=== PATIENT | female | born 1985 | race Caucasian/White ===

== ENCOUNTER → 2021-01-10 10:55 | Outpatient (BNVA) | payer OTHER, SELFPAY | PROVIDERS: PCP Family Medicine; Visit Provider Internal Medicine | DX: M25.50 Pain in unspecified joint (principal); Z79.899 Other long term (current) drug therapy; E61.1 Iron deficiency; Z11.59 Encounter for screening for other viral diseases; F17.210 Nicotine dependence, cigarettes, uncomplicated | CPT/HCPCS: 36415; 99204 ==

== ENCOUNTER 2021-01-10 13:02 | Outpatient (CLI) | payer OTHER, SELFPAY ==
--- NOTE | 2021-01-10 13:12 | XR_ITS ---
WS: [id number] FOOT LEFT TECHNIQUE: 2 views of the left foot CLINICAL INFORMATION: M25.50 - Pain in unspecified joint COMPARISON: None. FINDINGS: Diffuse soft tissue edema. Mild hallux valgus. Metatarsal heads are normal in appearance. Mild IP nicolasa nt narrowing involving the fifth PIP. Second through fifth DIP joint narrowing. Tiny plantar calcanea l spur. IMPRESSION: 1. Mild hallux valgus. 2. No significant erosive changes.
--- NOTE | 2021-01-10 13:12 | XR_ITS ---
WS: [id number] TECHNIQUE: 2 views of the left hand CLINICAL INFORMATION: M25.50 - Pain in unspecified joint COMPARISON: None. FINDINGS: Periarticular erosive changes involving the second third and fifth metatarsal heads. Narrowing of the second MCP joint. Periarticular erosive changes involving the second PIP joint. Small periarticular erosions involving the third through fifth PIP joints. Narrowing of the radiocarpal joint. Slight ulna minus variance. Mild erosive changes involving the pr oximal and distal carpal row. Periarticular erosions involving the first DIP joint. XR/XR hand LT 2V [id number] IMPRESSION: 1. Advanced degenerative narrowing radiocarpal joint with ulna minus variance. 2. Periarticular erosions involving the metacarpals worse involving the second and fifth metacarpal heads. Narrowing of the second MCP. 3. Periarticular erosions involving the PIP joints worse involving the second PIP joint.
--- NOTE | 2021-01-10 13:12 | XR_ITS ---
WS: [id number] FOOT RIGHT TECHNIQUE: 2 views of the right foot CLINICAL INFORMATION: M25.50 - Pain in unspecified joint COMPARISON: None. FINDINGS: Normal anatomic alignment. No acute fractures. Diffuse soft tissue edema lower leg and foot. Tiny margarette ntar calcaneal spur. Erosive changes involving the fifth metatarsal head with narrowing of the MTP salv[place] int. No other significant findings. XR/XR foot RT 2V [id number] IMPRESSION: 1. Erosive changes involving the fifth metatarsal head with narrowing of the M TP joint. 2. Diffuse soft tissue edema
--- NOTE | 2021-01-10 13:12 | XR_ITS ---
WS: [id number] TECHNIQUE: 2 views of the right hand CLINICAL INFORMATION: M25.50 - Pain in unspecified joint COMPARISON: None. FINDINGS: Advanced degenerative narrowing involving the radiocarpal joint. Hypertrophic ulna styloid process. S mall particular erosions involving the third through fifth PIP joints. DIP joints are well preserved. Periarticular erosions involving the second metacarpal head. XR/XR hand RT 2V [id number] IMPRESSION: 1. Advanced degenerative narrowing radiocarpal joint. 2. Small periarticular erosions worse involving the second metatarsal head and third thru fifth DIP joints
== END 2021-01-10 13:03 | disposition home or self-care (01) ==
PROVIDERS: PCP Family Medicine; Visit Provider Internal Medicine
DX: M25.50 Pain in unspecified joint (principal); Z11.59 Encounter for screening for other viral diseases
CPT/HCPCS: 73120; 73620; 80053; 82550; 83735; 84100; 84443; 85025; 85651; 86140; 86160; 86162; 86235; 86255; 86376; 86431; 86704; 86803; 87340